=== PATIENT | male | born 1960 | race Caucasian/White ===

== ENCOUNTER 2019-05-28 13:14 | Emergency (ER) | payer OTHER ==
--- NOTE | 2019-05-28 13:35 | ED Physician Documentation ---
General Adult - HISTORIAN Historian: patient - HPI Stated Complaint: laceration Chief Complaint: Laceration/Recheck/Suture Additional Information: Patient presents to ED with 5cm laceration to left anterior thigh. Patient states he was using a chainsaw to cut a hedge post when the chainsaw slipped and cut his leg. He is not current on his tetanus vaccine. Onset: minutes (20) Timing: still present Severity: moderate - ROS CONST: denies: fever EYES/ENT: none CVS/RESP: none GI/: none MS/SKIN/LYMPH: none NEURO/PSYCH: denies: headache - PAST HX Past History: COPD, other (lung cancer) Other History: none Surgeries/Procedures: none Allergies/Adverse Reactions: Allergies Allergy/AdvReac Type Severity Reaction Status Date / Time latex Allergy Verified 05/28/19 13:32 Penicillins Allergy Verified 05/28/19 13:32 Home Medications: Ambulatory Orders Medication Instructions Recorded Morphine Sulfate [Morphabond ER] 30 mg PO BID 05/28/19 - SOCIAL HX Smoking History: cigarettes, greater than 1 pack/day Alcohol Use: none Drug Use: none - FAMILY HX Family History: No - VITAL SIGNS Vital Signs: Vital Signs Temp Pulse Resp BP Pulse Ox 85 22 104/59 98 05/28/19 13:25 05/28/19 13:25 05/28/19 13:25 05/28/19 13:25 - REVIEWED ASSESSMENTS Nursing Assessment Reviewed: Yes Vitals Reviewed: Yes Procedures Wound Location: lower extremity Wound Length: 5 cm Wound's Depth, Shape: irregular, contused tissue Wound Explored: no foreign body removed Irrigated w/ Saline (ccs): 250 Betadine Prep?: No Anesthesia: 1% Lidocaine Volume of Anesthetic: 10 ml Wound Debrided: moderate Wound Repaired With: sutures Suture Size/Type: 4:0 Number of Sutures: 11 Sterile Dressing Applied?: Yes Splint Applied?: No Sling Applied?: No ED Results Lab/Radiology - Orders Orders: ED Orders Category Date Time Status Diph,Pertuss(Acell),Tet Vac/Pf [Adacel] Med 05/28/19 13:31 Discontinued 0.5 ml IM .ONCE ONE Lidocaine 1% 5ml [Xylocaine] Med 05/28/19 13:31 Discontinued 50 mg IM NOW ONE Lidocaine 1% 5ml [Xylocaine] Med 05/28/19 13:33 Discontinued 50 mg IM NOW ONE Tetanus Immune Globulin/Pf [Hypertet S-D 250 Units Med 05/28/19 13:37 Discontinued Syringe] 250 unit IM .STK-MED ONE General Adult Physical Exam - PHYSICAL EXAM GENERAL APPEARANCE: no distress EENT: ELDER NECK: No: lymphadenopathy RESPIRATORY: no resp distress CVS: reg rate & rhythm ABDOMEN: soft BACK: normal inspection SKIN: warm/dry, normal color, other (5 cm laceration to left anterior thigh) EXTREMITIES: no edema NEURO: oriented X3, mood/affect nml Discharge Clincal Impression: Laceration Referrals: Primary Doctor,No [Primary Care Provider] - 2 Days Additional Instructions: 1. Keep wound clean and dry. Wash twice daily with antibacterial soap, dry thoroughly 2. Apply dry dressing daily. Remove at night with sleep. 3. Follow up with PCP in 10 days for suture removal 4. Return to ER for new or worsening symptoms Condition: Stable Disposition: 01 HOME, SELF-CARE Decision to Admit: NO Date of Decison to Admit: 05/28/19 Decision Time: 14:15
[2019-05-28] MEDS: DIPH,PERTUSS(ACELL),TET VAC/PF 0.5 ML DISP.SYRIN IM ONE (13:42)
[2019-05-28] MEDS: Lidocaine 1% 5ml 10 MG/ML VIAL IM ONE ×2 (13:48)
[2019-05-28] MEDS: TETANUS IMMUNE GLOBULIN/PF 250 UNIT DISP.SYRIN IM ONE (13:49)
[2019-05-28 14:45] VITALS: BP 104/62
== END 2019-05-28 14:35 | disposition home or self-care (01) ==
LOC: ED 13:14
DX: S71.112A Laceration without foreign body, left thigh, initial encounter (principal); W29.3XXA Contact with powered garden and outdoor hand tools and machinery, initial encounter
CPT/HCPCS: 90715; 96372; 99282; 99284